=== PATIENT | female | born 1935 | race Caucasian/White ===

== ENCOUNTER 2017-05-30 14:50 | Inpatient (IN) | payer BC, OTHER ==
[2017-05-29 19:30] VITALS: BP 177/68
[~2017-05-30] VITALS: Ht 162.6 cm; Wt 85.7 kg
--- NOTE | 2017-05-30 14:55 | NUR ---
[id number] FROM HOME: S/P GLF. UNABLE TO CARE FOR SELF. FREQUENT FALLS. GENERALIZED WEAKNESS. A/OX 2, BREATHING EVEN AND UNLABORED. NO SOB, NAD, VITALS STABLE. SAFETY AND COMFORT MEASURES IN PLACE. AWAITING MD ORDERS.
--- NOTE | 2017-05-30 15:15 | NUR ---
NEW IV STARTED ON LFA, 20G. BLOOD DRAWN AND SENT TO LAB.
[2017-05-30 15:22] LABS: BASOPHILS # (AUTO) 0.1 /CMM (0.0-0.2); BASOPHILS % (AUTO) 1.1 % (0.0-2.0); EOSINOPHILS % (AUTO) 1.3 % (0.0-6.0); HEMATOCRIT 36 % (33-45); HEMOGLOBIN 12.6 g/dL (11.5-14.8); LYMPHOCYTES # (AUTO) 1.4 /CMM (0.8-4.8); LYMPHOCYTES % (AUTO) 23.2 % (20.0-44.0); MEAN CORPUSCULAR HGB CONC 35 g/dl (31.0-36.0); MEAN CORPUSCULAR VOLUME 95 fL (82-100); MONOCYTES # (AUTO) 0.6 /CMM (0.1-1.30); MONOCYTES % (AUTO) 10.3 % (2.0-12.0); NEUTROPHILS # (AUTO) 3.9 /CMM (1.8-8.9); NEUTROPHILS % (AUTO) 64.1 % (43.0-81.0); PLATELET COUNT (AUTO) 149 /CMM (150-450); RDW COEFFICIENT OF VARIATION 13.3 (11.5-15.0); RED BLOOD CELL COUNT(AUTO) 3.79 MIL/uL (4.0-5.2); WHITE BLOOD COUNT (AUTO) 6.1 K/uL (4.3-11.0)
--- NOTE | 2017-05-30 15:25 | NUR ---
BLOOD SUGAR CHECKED, READING 107
[2017-05-30] MEDS ORDERED: IV NS 0.9% 500 ML BAG IV ONE (15:30)
[2017-05-30 15:32] LABS: CARBON DIOXIDE 27 mmol/L (21-32); CHLORIDE 108 mmol/L (98-107); CREATININE 1.4 mg/dL (0.6-1.3); GLUCOSE 122 mg/dL (74-106); POTASSIUM 4.4 mmol/L (3.5-5.1); SODIUM SERUM 141 mmol/L (136-145); UREA NITROGEN, BLOOD 40 mg/dL (7-18)
[2017-05-30 15:35] LABS: INR 1.02 (0.85-1.15)
[2017-05-30 15:37] LABS: ACETAMINOPHEN 0 ug/ml (10-30); ALANINE AMINOTRANSFERASE 18 U/L (12-78); ALBUMIN 2.9 g/dL (3.4-5.0); ALKALINE PHOSPHATASE 62 U/L (46-116); ASPARTATE AMINOTRANSFERASE 17 U/L (15-37); BILIRUBIN,DIRECT 0.2 mg/dL (0.0-0.2); BILIRUBIN,TOTAL 0.5 mg/dL (0.2-1.0); SALICYLATE 2.4 mg/dL (2.8-20.0)
[2017-05-30 15:39] LABS: TROPONIN I 0.024 ng/mL (0.00-0.056)
[2017-05-30 15:41] LABS: SERUM AMMONIA 11 umol/L (11-32)
--- NOTE | 2017-05-30 15:43 | NUR ---
ELECTRIC LOCOMOTIVE FIRER/FIREMAN AT BEDSIDE.
[2017-05-30 15:57] LABS: THYROID STIMULATING HORMONE 0.348 uIU/mL (0.358-3.74)
--- NOTE | 2017-05-30 16:10 | NUR ---
PATIENT TAKEN TO CT VIA STRETCHER.
--- NOTE | 2017-05-30 16:36 | NUR ---
CALLED NURSING MAILS SUPERVISOR AND REQUESTED A MED/SURG BED FOR THIS PT.
--- NOTE | 2017-05-30 16:45 | NUR ---
URINE OBTAINED VIA STRAIGHT CATH AND SENT TO LAB PER MD ORDERS.
[2017-05-30 17:23] LABS: APPEARANCE,URINE CLEAR (CLEAR); BILIRUBIN,URINE NEGATIVE (NEGATIVE); BLOOD, URINE NEGATIVE Ery/uL (NEGATIVE); COLOR,URINE YELLOW (YELLOW); KETONES,URINE NEGATIVE (NEGATIVE); LEUKOCYTE ESTERASE ,URINE NEGATIVE (NEGATIVE); NITRITE, URINE NEGATIVE (NEGATIVE); PH,URINE 5.5 (5.0-8.0); PROTEIN,URINE NEGATIVE (NEGATIVE); UGLUCOSE NEGATIVE (NEGATIVE); UROBILINOGEN,URINE 0.2 EU/dL (0.2)
[2017-05-30] MEDS ORDERED: ATOR80TA PO (17:28)
[2017-05-30] MEDS ORDERED: ARIP10TA9 PO (17:28)
[2017-05-30] MEDS ORDERED: DIVA500T54 PO (17:28)
[2017-05-30] MEDS ORDERED: LEVO150T8 PO (17:28)
[2017-05-30] MEDS ORDERED: SERT100T PO (17:28)
[2017-05-30] MEDS ORDERED: SOLI10TA2 PO (17:28)
[2017-05-30] MEDS ORDERED: ENAL20TA PO (17:28)
[2017-05-30] MEDS ORDERED: CLON1TAB5 PO (17:28)
--- NOTE | 2017-05-30 17:35 | NUR ---
PT IS ASSIGNED TO MED/SURG RM#: [id number], PT IS DIAGNOSED WITH GENERALIZED WEAKNESS, AND DR MONTANEZ IS THE ACCEPTING MD.
--- NOTE | 2017-05-30 17:46 | NUR ---
REPORT GIVEN TO FRANKIE DIANA FOR DEMI UPON ADMISSION.
--- NOTE | 2017-05-30 18:01 | NUR ---
RECEIVED A CALL FROM AMY JAILER AT [facility], SHE NOTIFIED ME THAT SINCE PATIENT IS STABLE FOR TRANSPORT SHE WILL ATTEMPT TO HAVE PATIENT TRANSFERRED TO A CONTRACTED FACILITY.
--- NOTE | 2017-05-30 18:30 | NUR ---
FAXED FACESHEET AND H&P OVER TO [facility] FAX NUMBER:
--- NOTE | 2017-05-30 18:39 | NUR ---
TOM ([facility]) [phone]
--- NOTE | 2017-05-30 18:42 | NUR ---
RECEIVED A CALL FROM AMY BARCENAS SHE NOTIFIED ME THAT SHE SPOKE WITH DR MONTANEZ AND HE STATED HE WOULD ADMIT THE PATIENT FOR "OBSERVATION". SHE WILL CALL BACK WITH AN AUTH#
--- NOTE | 2017-05-30 19:04 | NUR ---
REPORT GIVEN TO KAMARI DIANA FOR DEMI.
--- NOTE | 2017-05-30 19:05 | NUR ---
RECEIVED REPORT FROM LEBRON MONTOYA.
--- NOTE | 2017-05-30 19:26 | NUR ---
PT TRANSFERRED VIA GURNEY TO [facility]
--- NOTE | 2017-05-30 19:30 | NUR ---
RN NOTES RECEIVED PATIENT FROM ER FOR DX GENERALIZED WEAKNESS. PATIENT AO X 2-3, FORGETFUL AT TIMES. DENIES ANY PAIN AT THIS TIME. IV SITE PATENT, INTACT; FLUSHED. SKIN ASSESSMENT DONE. SAFETY REMINDERS GIVEN. ORIENTED TO ROOM AND UNIT. ON LOW BED WITH BILATERAL UPPER SIDE RAILS UP. CALL PALMA WITHIN EASY REACH. WILL GET ADMISSION REPORT FROM DR. MONTANEZ. WILL CONTINUE TO MONITOR.
[2017-05-30 20:00] VITALS: BP 177/68
[2017-05-30] MEDS: ARIPIPRAZOLE 5 MG TABLET PO SCH (22:22)
[2017-05-30] MEDS: ACETAMINOPHEN 325 MG TABLET PO PRN (22:26)
[2017-05-31] MEDS: clonazePAM 1 MG TABLET PO PRN ×2 (02:22→19:53)
--- NOTE | 2017-05-31 06:00 | NUR ---
RN NOTES PATIENT ASLEEP, EASILY AROUSABLE. RESPIRATIONS EVEN. MONITORED FOR PAIN. NEEDS ATTENDED. KEPT CLEAN AND DRY. SAFETY PRECAUTIONS AND COMFORT MEASURES IN PLACE. WILL GIVE REPORT TO DAY SHIFT FOR CONTINUITY OF CARE.
[2017-05-31] MEDS ORDERED: LEVOTHYROXINE SODIUM 75 MCG TABLET PO SCH (07:30)
[2017-05-31] MEDS ORDERED: LEVOTHYROXINE SODIUM 150 MCG TABLET PO SCH (07:30)
--- NOTE | 2017-05-31 07:36 | NUR ---
MS RN OPENING NOTES RECEIVED PT FROM NIGHTSHIFT NURSE IN STABLE CONDITION. PT IS A/O X3. NO SOB OR SIGNS OF DISTRESS NOTED. BREATHING IS EVEN AND UNLABORED. PT IS ON 2L VIA NC AND SATING WELL. PER PT "I FEEL JUST FINE AND MUCH BETTER THAN I DID YESTERDAY". IV TO LEFT FA NOTED TO BE PATENT AND INTACT. NO REDNESS OR SIGNS OF INFILTRATION NOTED. BED IN LOW LOCKED POSITION, SIDE RAILS UP X2, CALL LIGHT WITHIN REACH. WILL CONTINUE TO MONITOR
[2017-05-31 08:00] VITALS: BP 140/79
[2017-05-31] MEDS: DIVALPROEX SODIUM 500 MG TABLET.DR PO SCH ×2 (08:50→13:56)
[2017-05-31] MEDS: OXYBUTYNIN CHLORIDE 5 MG TABLET PO SCH ×3 (08:50→17:00)
[2017-05-31] MEDS: SERTRALINE HCL 50 MG TABLET PO SCH (08:52)
[2017-05-31] MEDS: ENALAPRIL MALEATE (10 MG) 10 MG TABLET PO SCH (08:52)
[2017-05-31] MEDS: ATORVASTATIN 40 MG TABLET PO SCH (08:52)
[2017-05-31] MEDS ORDERED: PROP60CA6 PO (09:44)
[2017-05-31] MEDS ORDERED: LEVO75TA PO (09:44)
[2017-05-31 09:47] LABS: ALANINE AMINOTRANSFERASE 19 U/L (12-78); ALBUMIN 2.8 g/dL (3.4-5.0); ALKALINE PHOSPHATASE 55 U/L (46-116); ASPARTATE AMINOTRANSFERASE 19 U/L (15-37); BILIRUBIN,TOTAL 0.6 mg/dL (0.2-1.0); CALCIUM, SERUM 8.7 mg/dL (8.5-10.1); CARBON DIOXIDE 28 mmol/L (21-32); CHLORIDE 109 mmol/L (98-107); CREATININE 1.1 mg/dL (0.6-1.3); GLUCOSE 92 mg/dL (74-106); POTASSIUM 4.1 mmol/L (3.5-5.1); SODIUM SERUM 144 mmol/L (136-145); TOTAL PROTEIN, SERUM 5.9 g/dL (6.4-8.2); UREA NITROGEN, BLOOD 32 mg/dL (7-18)
[2017-05-31 10:04] LABS: CHOLESTEROL 161 mg/dL (<200); CREATINE KINASE, TOTAL 76 U/L (26-192); HDL CHOLESTEROL 40 mg/dL (40-60); LDL 93 mg/dL (0-99); THYROID STIMULATING HORMONE 0.359 uIU/mL (0.358-3.74); TRIGLYCERIDES 217 mg/dL (30-150)
[2017-05-31 10:10] LABS: BASOPHILS % (AUTO) 0.5 % (0.0-2.0); EOSINOPHILS % (AUTO) 2.2 % (0.0-6.0); HEMATOCRIT 36 % (33-45); HEMOGLOBIN 12.2 g/dL (11.5-14.8); LYMPHOCYTES # (AUTO) 1.2 /CMM (0.8-4.8); LYMPHOCYTES % (AUTO) 31.4 % (20.0-44.0); MEAN CORPUSCULAR HGB CONC 34 g/dl (31.0-36.0); MEAN CORPUSCULAR VOLUME 96 fL (82-100); MONOCYTES # (AUTO) 0.4 /CMM (0.1-1.30); NEUTROPHILS # (AUTO) 2.2 /CMM (1.8-8.9); NEUTROPHILS % (AUTO) 55.9 % (43.0-81.0); PLATELET COUNT (AUTO) 92 /CMM (150-450); RED BLOOD CELL COUNT(AUTO) 3.69 MIL/uL (4.0-5.2); WHITE BLOOD COUNT (AUTO) 3.9 K/uL (4.3-11.0)
--- NOTE | 2017-05-31 10:56 | NUR ---
MS RN NOTES DR. MONTANEZ IN TO SEE PT. PER MD "PT MAY BE D/C HOME WITH PHYSICAL THERAPY IF RECOMMENDED BY OUR PT AND IF PT IS ABLE TO WALK WITH HER WALKER, HOWEVER, IF PT RECOMMENDS HAT SHE NEEDS SNF, THEN SHE MAY BE D/C TO SNF TODAY". MIKAYLA THE MARKING STITCHER WAS MADE AWARE AND STATES THE WE MUST FIRST WAIT FOR THE RESULTS OF THE PT EVAL.
--- NOTE | 2017-05-31 11:03 | NUR ---
MS RN NOTES: PT PHYSICAL THERAPIST WITH PT. PER THERAPIST, "SNF WOULD BE RECOMMENDED PT'S IS UNABLE TO CARE FOR HER AT HOME AND SHE IS VERY WEAK". DR. MONTANEZ MADE AWARE, HOWEVER, WILL AWAIT FOR THE WRITTEN EVALUATION BEFORE A DISPOSITION MAY BE CONCLUDED
--- NOTE | 2017-05-31 11:12 | NUR ---
MS RN NOTES PROPRANOLOL IS NOT IN THE PIXIS NOR IN THE PT'S CASSETTE. PHARMACIST MADE AWARE AND STATES THAT A TECH WILL BRING IT UP
--- NOTE | 2017-05-31 13:06 | NUR ---
PROPRANOLOL FOLLOW UP PHARMACIST CONTACTED AGAIN IN REGARDS TO PROPRANOLOL ADMINISTRATION. PER PHARMACIST FOSTER, "I WILL LOOK IN TO IT"
--- NOTE | 2017-05-31 13:51 | NUR ---
MS RN NOTES PROPRANOLOL WAS JUST DELIVERED BY [facility]. WILL ADMINISTER MEDICATION
[2017-05-31] MEDS: PROPRANOLOL LA 60 MG CAP.SA.24H PO SCH (13:56)
[2017-05-31 16:00] VITALS: BP 128/63
[2017-05-31] MEDS: ACETAMINOPHEN 325 MG TABLET PO PRN (17:02)
--- NOTE | 2017-05-31 19:30 | NUR ---
RN NOTES RECEIVED PATIENT IN BED AWAKE, AO X 3, ABLE TO MAKE NEEDS KNOWN. NO ACUTE DISTRESS NOTED. DENIES ANY PAIN AT THIS TIME. IV SITE PATENT, INTACT; FLUSHED. SAFETY REMINDERS GIVEN. ON LOW BED WITH BILATERAL UPPER SIDE RAILS UP; BED ALARM ON. CALL PALMA WITHIN EASY REACH. WILL CONTINUE TO MONITOR.
--- NOTE | 2017-05-31 19:52 | NUR ---
MS RN CLOSING NOTES PT REMAINS IN STABLE CONDITION. ALL NEEDS WERE MET DURING SHIFT AND ORDERS CARRIED OUT ACCORDINGLY. ALL DUE MEDS GIVEN. WOUND AND SKIN CARE RENDERED. IV REMAINS PATENT AND INTACT. CALL RECEIVED FROM AB THE CASE MANAGEMENT FROM [facility]. PER AB, PT WILL BE D/C TO [facility]. MIKAYLA THE CASE MANAGEMENT MADE AWARE. EXIT CARE COMPLETED. ENDORSED TO NIGHTSHIFT NURSE TO GIVE REPORT TO RECEIVING FACILITY, REMOVE IV, AND COMPLETE DISCHARGE.
[2017-05-31 20:00] VITALS: BP 167/80
--- NOTE | 2017-05-31 20:15 | NUR ---
RN NOTES REPORT GIVEN TO JUAN CARLOS LENTZ NURSE AT [facility].
--- NOTE | 2017-05-31 21:15 | NUR ---
RN NOTES PATIENT VERY ANXIOUS REGARDING TRANSFERRING TO SNF. KLONOPIN GIVEN EARLIER IS INEFFECTIVE. BP 195/90. NONPHARMACOLOGICAL INTERVENTIONS INEFFECTIVE. DR. MONTANEZ MADE AWARE WITH NEW ORDER FOR CLONIDINE 0.1 MG PO ONCE AND ZYPREXA 5 MG PO ONCE; NOTED AND CARRIED OUT.
[2017-05-31] MEDS ORDERED: CLONIDINE HCL 0.1 MG TABLET PO ONE (21:30)
[2017-05-31] MEDS ORDERED: OLANZAPINE 5 MG TABLET PO ONE (21:30)
[2017-05-31] MEDS: ARIPIPRAZOLE 5 MG TABLET PO SCH (21:52)
[2017-05-31] MEDS ORDERED: LORAZEPAM INJ 2 MG/ML VIAL IV ONE (22:00)
--- NOTE | 2017-05-31 22:00 | NUR ---
RN NOTES PATIENT'S BP 202/96; STILL VERBALIZING BEING ANXIOUS. DR. MONTANEZ GAVE NEW ORDER FOR ATIVAN 0.5 MG IV ONCE; NOTED AND CARRIED OUT.
--- NOTE | 2017-05-31 22:05 | NUR ---
RN NOTES DR. MONTANEZ MADE AWARE THAT [facility] ( PER JUAN CARLOS LENTZ NURSE ) IS UNABLE TO ACCEPT PATIENT TONIGHT, BECAUSE THE ADMITTING NURSE HAD ALREADY GONE HOME. [facility] WOULD LIKE PATIENT TO BE TRANSFERRED BEFORE 2100 AND WITH A SBP OF < 150 PER NURSE JUAN CARLOS. [facility] DATABASE DEVELOPMENT PROJECT MANAGER AB ALSO MADE AWARE. PATIENT NOTIFIED THAT SHE WILL BE STAYING IN THE UNIT TONIGHT.
--- NOTE | 2017-05-31 23:11 | NUR ---
RN NOTES PATIENT'S TOM IS NOT ANSWERING PHONE AT THIS TIME; CANNOT BE NOTIFIED THAT PATIENT WAS NOT TRANSFERRED TO [facility]. WILL TRY AGAIN IN AM.
--- NOTE | 2017-06-01 06:30 | NUR ---
RN NOTED PATIENT DID NOT EXHIBIT ANY MORE RESTLESSNESS AFTER BEING INFORMED THAT SHE WILL NO LONGER BE TRANSFERRED LAST NIGHT. ATIVAN NOT NEEDED AND THEREFORE NOT GIVEN.
--- NOTE | 2017-06-01 07:05 | NUR ---
RN NOTES PATIENT ASLEEP, EASILY AROUSABLE. RESPIRATIONS EVEN. NO SIGNS OF PAIN NOTED. DUE MEDS GIVEN WITH NO ASE NOTED. NEEDS ATTENDED. KEPT CLEAN AND DRY. SAFETY PRECAUTIONS AND COMFORT MEASURES IN PLACE. WILL GIVE REPORT TO DAY SHIFT FOR CONTINUITY OF CARE.
--- NOTE | 2017-06-01 07:25 | NUR ---
PER CHIEF PHYSICAL THERAPIST, ONLY ONE HEARING AIDS AT BEDSIDE.
--- NOTE | 2017-06-01 07:25 | NUR ---
RN OPEN NOTES RECEIVED REPORT FROM HIP HOP PERFORMERS RN. PATIENT IS IN BED. HARD OH HEARING. POSSIBLE D/C TODAY. NO SIGNS AND SYMPTOMS OF DISTRESS. BED IN LOW POSITION, LOCKED AND TWO SIDE RAILS ARE UP. CALL LIGHT WITHIN REACH FOR SAFETY. WILL CONTINUE TO MONITOR PATIENT
[2017-06-01] MEDS ORDERED: LEVOTHYROXINE SODIUM 125 MCG TABLET PO SCH (07:30)
[2017-06-01] MEDS: ATORVASTATIN 40 MG TABLET PO SCH (08:26)
[2017-06-01] MEDS: OXYBUTYNIN CHLORIDE 5 MG TABLET PO SCH ×3 (08:26→16:45)
[2017-06-01] MEDS: ENALAPRIL MALEATE (10 MG) 10 MG TABLET PO SCH (08:26)
[2017-06-01] MEDS: SERTRALINE HCL 50 MG TABLET PO SCH (08:26)
[2017-06-01] MEDS: PROPRANOLOL LA 60 MG CAP.SA.24H PO SCH (08:26)
[2017-06-01] MEDS: DIVALPROEX SODIUM 500 MG TABLET.DR PO SCH ×2 (08:26→12:17)
[2017-06-01 08:37] VITALS: BP 172/59
[2017-06-01] MEDS ORDERED: AMLODIPINE BESYLATE 10 MG TABLET PO SCH (09:30)
--- NOTE | 2017-06-01 09:58 | NUR ---
CALLED ANA, TO CHECK IF HE TOOK HOME ONE HEARING AID. PER PATIENT: "HEARING AIDS WAS DOING NOISE AND HE MIGHT TOOK IT HOME TO FIX IT"
--- NOTE | 2017-06-01 10:51 | NUR ---
PT AT BEDSIDE
[2017-06-01 16:12] VITALS: BP 123/58
--- NOTE | 2017-06-01 19:35 | NUR ---
MS RN NOTES RECEIVE PT IN BED PT FOR DISCHARGE IN STABLE CONDITION NOT IN RESPIRATORY DISTRESS, SAFETY MEASURES IN PLACE. AWAITNG AMBULANCE.
[2017-06-01 20:00] VITALS: BP 135/72
--- NOTE | 2017-06-01 20:28 | NUR ---
PATIENT DISCHARGE PATIENT LEFT AT 2014 VIA [facility] 2 EMT ON 2LPM VIA [place], PATIENT ON STABLE CONDITION NO S/S OF DISTRESS NOTED, NO CHEST PAIN, NO HEADACHE, NO NAUSEA AND VOMITING, NO COMPLAINS OF PAIN, VS STABLE, 02 SAT 97%, HEALTH EDUCATION AND EXIT CARE WAS PROVIDED, EDUCATION ABOUT DISEASE AND RISKS AND BENEFITS FOLLOW UP CARE PROVIDED, REINFORCEMENT NEEDED DOCUMENTS WAS PROVIDED. CONTINUE MEDICATION PRESCRIPTION WAS PROVIDED. IV HEPLOCK REMOVED BY DAY SHIFT RN. KEPT CLEAN AND DRY. ALL BELONGINGS WAS TAKEN, PATIENT APPRECIATIVE TO NURSES AND THANKFUL.
== END 2017-06-01 20:15 | DRG 93 ==
LOC: ER 14:52 → MEDSG2 19:20
PROVIDERS: ADMIT Internal Medicine; ATTEND Internal Medicine
DX: G25.0 Essential tremor (principal); F03.90 Unspecified dementia, unspecified severity, without behavioral disturbance, psychotic disturbance, mood disturbance, and anxiety; E03.9 Hypothyroidism, unspecified; W18.30XA Fall on same level, unspecified, initial encounter; R53.1 Weakness; I10 Essential (primary) hypertension; F41.9 Anxiety disorder, unspecified; M19.90 Unspecified osteoarthritis, unspecified site; R29.6 Repeated falls; Y93.9 Activity, unspecified; Y92.009 Unspecified place in unspecified non-institutional (private) residence as the place of occurrence of the external cause; R41.3 Other amnesia
CPT/HCPCS: 36415; 70450-TC; 71045-TC; 80048-TC; 80053-TC; 80061-TC; 80076-TC; 80164-TC; 81000-TC; 82140-TC; 82550-TC; 82962-TC; 84443-TC; 84484-TC; 85025-TC; 85730-TC; 87081-TC; 97116-TC; 97530-TC; A4606; G0480; J7040; Z7610